=== PATIENT | female | born 1955 | race Caucasian/White ===

== ENCOUNTER → 2016-11-12 | Outpatient (CLI) | payer OTHER ==
[2016-11-12 14:13] LABS: BASO % 0.2 % (0.0-1.0); EOS # 0.1 K/mm3 (0.0-0.50); EOS % 0.8 % (0.0-3.0); LYMPH # 1.2 K/mm3 (1.5-4.5); LYMPH % 8.2 % (24.0-44.0); MEAN CORPUSCULAR HEMOGLOBIN 29.1 pg (27.0-33.0); MEAN CORPUSCULAR HGB CONC 32.5 g/dl (32.0-36.5); MEAN CORPUSCULAR VOLUME 89.7 fl (80.0-96.0); MONO # 0.5 K/mm3 (0.0-0.8); MONO % 3.5 % (0.0-5.0); NEUTROPHILS # 12.3 K/mm3 (1.8-7.7); NEUTROPHILS % 86.7 % (36.0-66.0); RED CELL DISTRIBUTION WIDTH 12.2 % (11.5-14.5); WHITE BLOOD COUNT 14.2 K/mm3 (4.0-10.0)
[2016-11-12 15:03] LABS: ALBUMIN 3.1 GM/DL (3.2-5.2); ALBUMIN/GLOBULIN RATIO 0.65 (1.00-1.93); ALKALINE PHOSPHATASE 102 U/L (45-117); ALT/SGPT 14 U/L (12-78); ANION GAP 8 MEQ/L (8-16); AST/SGOT 7 U/L (15-37); BILIRUBIN,TOTAL 0.3 MG/DL (0.2-1.0); BLOOD UREA NITROGEN 10 MG/DL (7-18); CARBON DIOXIDE LEVEL 30 MEQ/L (21-32); CHLORIDE LEVEL 101 MEQ/L (98-107); CHOLESTEROL LEVEL 205 MG/DL (<200); CREATININE FOR GFR 0.87 MG/DL (0.55-1.02); GLOMERULAR FILTRATION RATE > 60.0 (>51); GLUCOSE, FASTING 93 MG/DL (70-105); POTASSIUM SERUM 4.4 MEQ/L (3.5-5.1); SODIUM LEVEL 139 MEQ/L (136-145); TOTAL PROTEIN 7.9 GM/DL (6.4-8.2); TRIGLYCERIDES LEVEL 160 MG/DL (<150)
== END ==
LOC: M LAB 13:18
PROVIDERS: ATTEND Dermatology
DX: Z79.899 Other long term (current) drug therapy (principal)

== ENCOUNTER → 2017-10-01 | Outpatient (CLI) | payer OTHER ==
[2017-10-01 11:20] LABS: BASO % 0.4 % (0.0-1.0); EOS # 0.2 10^3/uL (0.0-0.50); EOS % 2.3 % (0.0-3.0); HEMATOCRIT 37.1 % (36.0-47.0); IMMATURE GRANULOCYTE % 0.2 % (0-3.0); LYMPH # 1.6 10^3/uL (1.5-4.5); LYMPH % 19.4 % (24.0-44.0); MEAN CORPUSCULAR HEMOGLOBIN 29.6 pg (27.0-33.0); MEAN CORPUSCULAR HGB CONC 32.3 g/dl (32.0-36.5); MEAN CORPUSCULAR VOLUME 91.4 fl (80.0-96.0); MONO # 0.5 10^3/uL (0.0-0.8); MONO % 5.7 % (0.0-5.0); NEUTROPHILS # 6.1 10^3/uL (1.8-7.7); PLATELET COUNT, AUTOMATED 287 10^3/uL (150-450); RED BLOOD COUNT 4.06 10^6/uL (4.00-5.40); RED CELL DISTRIBUTION WIDTH 13.5 % (11.5-14.5); WHITE BLOOD COUNT 8.4 10^3/uL (4.0-10.0)
[2017-10-01 11:59] LABS: ALBUMIN 3.6 GM/DL (3.2-5.2); ALBUMIN/GLOBULIN RATIO 0.97 (1.00-1.93); ALKALINE PHOSPHATASE 81 U/L (45-117); ALT/SGPT 20 U/L (12-78); ANION GAP 5 MEQ/L (8-16); AST/SGOT 19 U/L (7-37); BILIRUBIN,TOTAL 0.4 MG/DL (0.2-1.0); BLOOD UREA NITROGEN 23 MG/DL (7-18); CALCIUM LEVEL 9.3 MG/DL (8.8-10.2); CARBON DIOXIDE LEVEL 30 MEQ/L (21-32); CHLORIDE LEVEL 105 MEQ/L (98-107); CREATININE FOR GFR 0.93 MG/DL (0.55-1.30); GLOMERULAR FILTRATION RATE > 60.0 (>45); GLUCOSE, FASTING 84 MG/DL (70-100); POTASSIUM SERUM 4.4 MEQ/L (3.5-5.1); SODIUM LEVEL 140 MEQ/L (136-145); TOTAL PROTEIN 7.3 GM/DL (6.4-8.2)
== END ==
LOC: M LAB 10:50
DX: Z79.899 Other long term (current) drug therapy (principal); C44.319 Basal cell carcinoma of skin of other parts of face
CPT/HCPCS: 80053

== ENCOUNTER → 2018-11-23 | Outpatient (CLI) | payer OTHER ==
[2018-11-23 13:20] LABS: BASO % 0.3 % (0.0-1.0); EOS # 0.2 10^3/uL (0.0-0.50); EOS % 1.3 % (0.0-3.0); HEMATOCRIT 28.8 % (36.0-47.0); HEMOGLOBIN 8.3 g/dl (12.0-15.5); LYMPH # 1.6 10^3/uL (1.5-4.5); LYMPH % 13.7 % (24.0-44.0); MEAN CORPUSCULAR HEMOGLOBIN 21.9 pg (27.0-33.0); MEAN CORPUSCULAR HGB CONC 28.8 g/dl (32.0-36.5); MONO # 0.7 10^3/uL (0.0-0.8); MONO % 5.5 % (0.0-5.0); NEUTROPHILS # 9.4 10^3/uL (1.8-7.7); NEUTROPHILS % 78.8 % (36.0-66.0); PLATELET COUNT, AUTOMATED 745 10^3/uL (150-450); RED BLOOD COUNT 3.79 10^6/uL (4.00-5.40); WHITE BLOOD COUNT 11.9 10^3/uL (4.0-10.0)
[2018-11-23 13:43] LABS: ALBUMIN 3.1 GM/DL (3.2-5.2); ALT/SGPT 11 U/L (12-78); BILIRUBIN,TOTAL 0.2 MG/DL (0.2-1.0); BLOOD UREA NITROGEN 16 MG/DL (7-18); CALCIUM LEVEL 10.2 MG/DL (8.8-10.2); CARBON DIOXIDE LEVEL 29 MEQ/L (21-32); CHLORIDE LEVEL 101 MEQ/L (98-107); CREATININE FOR GFR 0.69 MG/DL (0.55-1.30); GLOMERULAR FILTRATION RATE > 60.0 (>45); GLUCOSE, FASTING 87 MG/DL (70-100); POTASSIUM SERUM 4.2 MEQ/L (3.5-5.1); SODIUM LEVEL 138 MEQ/L (136-145); TOTAL PROTEIN 7.6 GM/DL (6.4-8.2)
== END ==
LOC: M LAB 12:29
PROVIDERS: ATTEND Dermatology
DX: Z79.899 Other long term (current) drug therapy (principal)

== ENCOUNTER 2019-03-24 19:14 | Inpatient (IN) | payer OTHER ==
[~2019-03-24] VITALS: Ht 165.1 cm; Wt 39.1 kg
[2019-03-24] MEDS ORDERED: ERYT1OIN26 TOP (19:30)
[2019-03-24] MEDS ORDERED: ACET-683 PO (19:30)
[2019-03-24] MEDS ORDERED: CENT1TAB PO (19:30)
[2019-03-24] MEDS ORDERED: [UNRECOGNIZED DRUG - CODE] PO (19:30)
[2019-03-24] MEDS ORDERED: GENT1OI TOP (19:30)
[2019-03-24] MEDS ORDERED: MUPI2OI (19:30)
[2019-03-24] MEDS ORDERED: DOCU-129 PO (19:33)
[2019-03-24] MEDS ORDERED: CBD OIL PO (19:33)
[2019-03-24] MEDS ORDERED: FLORCAP6 PO (19:33)
[2019-03-24] MEDS ORDERED: MELA3TAB49 PO (19:33)
[2019-03-24] MEDS ORDERED: MELA1LIQ2 PO (19:33)
[2019-03-24] MEDS ORDERED: NS 500 ML IV ONE (19:45)
[2019-03-24 20:17] LABS: BASO % 0.2 % (0.0-1.0); HEMATOCRIT 27.3 % (36.0-47.0); HEMOGLOBIN 8.1 g/dl (12.0-15.5); LYMPH # 1.3 10^3/uL (1.5-5.0); LYMPH % 5.7 % (24.0-44.0); MEAN CORPUSCULAR HGB CONC 29.7 g/dl (32.0-36.5); MEAN CORPUSCULAR VOLUME 74.2 fl (80.0-96.0); MONO # 1.1 10^3/uL (0.0-0.8); MONO % 4.9 % (0.0-5.0); NEUTROPHILS # 19.4 10^3/uL (1.5-8.5); NEUTROPHILS % 88.7 % (36.0-66.0); PLATELET COUNT, AUTOMATED 776 10^3/uL (150-450); RED BLOOD COUNT 3.68 10^6/uL (4.00-5.40); WHITE BLOOD COUNT 21.9 10^3/uL (4.0-10.0)
[2019-03-24 20:57] LABS: ALBUMIN 2.2 GM/DL (3.2-5.2); ALT/SGPT 9 U/L (12-78); BILIRUBIN,DIRECT < 0.1 MG/DL (0.0-0.2); BILIRUBIN,TOTAL 0.2 MG/DL (0.2-1.0); BLOOD UREA NITROGEN 17 MG/DL (7-18); CALCIUM LEVEL 9.7 MG/DL (8.8-10.2); CARBON DIOXIDE LEVEL 30 MEQ/L (21-32); CHLORIDE LEVEL 96 MEQ/L (98-107); CREATININE FOR GFR 0.53 MG/DL (0.55-1.30); GLOMERULAR FILTRATION RATE > 60.0 (>45); GLUCOSE, FASTING 104 MG/DL (70-100); SODIUM LEVEL 135 MEQ/L (136-145); TOTAL PROTEIN 6.5 GM/DL (6.4-8.2)
[2019-03-24] MEDS ORDERED: RAMELTEON 8 MG TAB (ROZEREM) PO SCH (21:00)
[2019-03-24] MEDS: GENTAMICIN SULFATE 0.1% OINT 15 GM TOP SCH (21:00)
[2019-03-24 22:19] LABS: FERRITIN 25 NG/ML (8-252); IRON (FE) 11 UG/DL (50-170); PERCENT SATURATION 5.6 % (13.2-45.0); TOTAL IRON BINDING CAPACITY 197 UG/DL (250-450)
[2019-03-24] MEDS ORDERED: ENSULIQ8 PO (22:19)
--- NOTE | 2019-03-24 22:39 | REPVR ---
PROCEDURE INFORMATION: Exam: XR Chest, 2 Views Exam date and time: 03/24/2019 10:04 PM Clinical history: 64 years old, female; Condition or disease; Other: Leukocytosis TECHNIQUE: Imaging protocol: XR of the chest Views: 2 views. COMPARISON: No relevant prior studies available. FINDINGS: Lungs: Lungs are hyperinflated but otherwise clear. Pleural space: Unremarkable. No pleural effusion. No pneumothorax. Heart/Mediastinum: Unremarkable. No cardiomegaly. Bones/joints: Unremarkable. IMPRESSION: 1. Hyperinflated lungs. 2. No acute disease. Electronically signed by: Wm Washington On 03/24/2019 22:39:20 PM
[2019-03-24] MEDS ORDERED: MAALOX 30 ML SUSP *UDC PO PRN (22:45)
[2019-03-24] MEDS ORDERED: ACETAMINOPHEN TAB 650MG DOSE (2X325MG) PO PRN (22:45)
[2019-03-24] MEDS ORDERED: ERYTHROMYCIN OPHTH OINT TOP PRN (22:45)
[2019-03-24 22:47] VITALS: BP 116/63
[2019-03-24] MEDS: DOCUSATE SODIUM 100 MG CAP PO SCH (22:53)
[2019-03-24 23:02] VITALS: BP 112/67
[2019-03-24 23:08] LABS: INFLUENZA A AMPLIFICATION NEGATIVE (NEGATIVE); INFLUENZA B AMPLIFICATION NEGATIVE (NEGATIVE)
[2019-03-24] MEDS: MORPHINE 2 MG/ML 1ML VIAL (J2270) IV PRN (23:32)
[2019-03-24] MEDS ORDERED: CLINDAMYCIN 600 MG in IV 1 EA IV ONE (23:45)
[2019-03-24] MEDS ORDERED: NS 1,000 ML IV SCH (23:45)
[2019-03-24 23:57] VITALS: BP 105/55
--- NOTE | 2019-03-24 23:57 | HPEPDOC ---
[facility] Medical History & Physical Date of Admission Mar 24, 2019 Date of Service: Mar 24, 2019 Attending Physician: INESSA LAWTON MD History and Physical CHIEF COMPLAINT: Decreased appetite, deconditioning HISTORY OF PRESENT ILLNESS: Lissy Britt is a 64-year-old female with history of basal cell carcinoma intracranial mass on right side of head with bony involvement and metastatic to the brain presents with several weeks deconditioning, decreased energy, decreased appetite. Per her daughter, juan gomez gets all of her cancer treatment at [facility] in [place] and with oncologist in [place]. The family was recently in [place] in early February 2019 for follow-up scans and was told that the intracranial mass has metastasized to her brain and the patient was given a terminal diagnosis. Ever since she has been home she has been unable to get out of bed due to lack of energy, has had lack of appetite, and has complained of pain in her neck and at the site of her cancer. She has only taken Tylenol for her pain, which she reports relieves her pain. She denies any recent fevers, but she does endorse chills. She denies nausea, vomiting or diarrhea. The patient does not report any pain at this current time. The family has been working on home hospice consult, but is unable to do so as the patient has not established with a PCP in [place]. PAST MEDICAL HISTORY: 1. Basal Cell Carcinoma of the face metastatic to the brain s/p oral chemotherapy with Erivedge (managed at [facility]) PAST SURGICAL HISTORY: None SOCIAL HISTORY: Nonsmoker, no alcohol FAMILY HISTORY: noncontributory ALLERGIES: Please see below. REVIEW OF SYSTEMS: CONSTITUTIONAL: Lack of energy, chills, lack of appetite HEENT: denies vision changes, no sinus problems, denies any trouble swallowing CARDIOVASCULAR: no palpitations RESPIRATORY: Denies any shortness of breath GENITOURINARY: No dysuria MUSCULOSKELETAL: Denies any joint/muscle pain GASTROINTESTINAL: Denies abdominal pain, no nausea/vomiting/diarrhea, reports intermittent constipation SKIN: No new rashes or lesions NEUROLOGICAL: No loss of sensation PSYCHIATRIC: Reports normal mood, no delusions or hallucinations ENDOCRINE: No hot/cold intolerance HEMATOLOGIC/LYMPHATIC: No easy bruising, no lumps/bumps ALLERGIC/IMMUNOLOGIC: No sinus symptoms HOME MEDICATIONS: Please see below. PHYSICAL EXAMINATION: VITAL SIGNS: Please see below. GENERAL APPEARANCE: Laying in bed, appears stated age, no acute distress, calm, cooperative, very cachectic HEENT: There is a large mass involving the right two thirds of her face extending from her scalp into her neck that is oozing, malodorous, and has evidence of infected tissue RESPIRATORY: Lungs are clear to auscultation bilaterally with no adventitious breath sounds appreciated CARDIOVASCULAR: no JVD, RRR,no murmurs/rubs/gallops ABDOMEN: Soft, nontender to palpation in all four quadrants, no luis s/organomegaly EXTREMITIES: no clubbing, cyanosis or edema noted NEUROLOGICAL: No obvious focal deficits PSYCHIATRIC: normal mood/affect Skin: No rashes or ulcers. LN: No significant cervical or inguinal lymphadenopathy LABORATORY DATA: See below. IMAGING: CT Maxillofacial (02/17/2019): Impression: Heterogeneously enhancing large superficial mass that extends intracranially is noted in the right side of the head and neck with significant bony destruction of the right frontal bone, parietal bone. Temporal bone and sphenoid bone. There is direct intracranial extension into the right middle cranial fossa and right anterior cranial fossa. Right to left midline shift is noted. There is direct extension into the right jugular foramen and right sigmoid sinus. Inferior extension is noted to involve the skin and subcutis tissues of the right side of the face and neck. Direct intraorbital extension on the right side is noted as well as extension to the right maxillary sinus. MRI brain (02/13/2019): Impression: Interval increase in size of a large heterogeneously enhancing aggressive right facial mass with bony destruction of the right frontal bone and right temporal bone. Direct intracranial extension is noted into the right frontal lobe and right temporal lobe. There is significant vasogenic edema in the right frontal lobe and 9 mm of right to left midline shift. The mass is extending into the right middle cranial fossa and jugular foramen with tumor thrombus noted within the right sigmoid sinus and right internal jugular vein. There is direct intraorbital extension to the right orbit with subsequent deformity of the right eye globe and mass effect exerted upon the right optic nerve. MICROBIOLOGY: Please see below. ASSESSMENT: This is 64-year-old female with terminal basal cell carcinoma involving most of her scalp, neck, and metastatic to her brain, who presents with deconditioning, lack of appetite, lack of energy found to have leukocytosis from unknown infection, thrombocytosis and anemia. PLAN: 1. Basal cell carcinoma, metastatic to the brain: Patient currently taking Erivedge prescribed by her oncologist at [facility]. -Latest imaging from [facility] above, demonstrates metastasis to brain. Patient reports she was referred to Dr. Bishop for radiation, but due to the late-stage of her cancer she is unable to do so. -Family wishes to pursue home hospice, referral placed -Pain management with IV morphine 2mg Q4H + bowel regimen ordered, Tylenol as needed 2. Leukocytosis: Source of infection likely secondary to soft tissue infection of the face. -Empiric antibiotic coverage with IV Clindamycin -Influenza, RSV negative -CXR negative for infection -Metronidazole cream to facial wound TID 3. Microcytic anemia likely 2/2 iron deficiency -Hgb found to be 8.1 on admission with most recent labs from [facility] Hgb 7.3. Patient reports she usually feels more energy with blood transfusion. -1U pRBCs ordered in ED, will recheck H/H in AM 4. Thrombocytosis: -Platelet count 776. This has been chronic for the patient, as last known plt count 869. -Likely 2/2 iron deficiency 5. Deconditioning: -Regular diet supplemented with Ensure TID -IVF NS 1 L bolus DISPO: Pending arrangement for home hospice Vital Signs Vital Signs Date Time Temp Pulse Resp B/P (MAP) Pulse Ox O2 Delivery O2 Flow Rate FiO2 03/24/19 22:34 79 16 116/63 (80) 98 Room Air 03/24/19 20:13 98.1 03/24/19 19:35 94 Laboratory Data Labs 24H Laboratory Tests 2 03/24/19 20:07: Immature Granulocyte % (Auto) 0.5, Neutrophils (%) (Auto) 88.7H, Lymphocytes (%) (Auto) 5.7L, Monocytes (%) (Auto) 4.9, Eosinophils (%) (Auto) 0.0, Basophils (%) (Auto) 0.2, Neutrophils # (Auto) 19.4H, Lymphocytes # (Auto) 1.3L, Monocytes # (Auto) 1.1H, Eosinophils # (Auto) 0.0, Basophils # (Auto) 0.0, Reticulocyte # (auto) 39.7, Nucleated Red Blood Cells % (auto) 0.0, Percent Reticulocyte Count 1.1, Reticulocyte Hemoglobin Equivalent 22.0L, Anion Gap 9, Glomerular Fi ltration Rate > 60.0, Calcium Level 9.7, Iron Level 11L, Total Iron Binding Capacity 197L, Transferrin % Saturation 5.6L, Ferritin 25, Total Bilirubin 0.2, Direct Bilirubin < 0.1, Aspartate Amino Transf (AST/SGOT) 11, Alanine Aminotransferase (ALT/SGPT) 9L, Alkaline Phosphatase 90, Total Protein 6.5, Albumin 2.2L, Albumin/Globulin Ratio 0.51L 03/24/19 22:23: 03/24/19 22:24: CBC/BMP Laboratory Tests 03/24/19 20:07 Microbiology Microbiology 03/24/19 Respiratory Virus Panel (PCR) (FABIAN), Received Pending 03/24/19 Blood Culture, Received Pending Home Medications Scheduled Cannabidiol (Cbd Oil) Btl, 25 MG PO DAILY Gentamicin Sulfate (Gentamicin Sulfate) 15 Gm Oint...g., 1 APPLIC TOP BID APPLIED TO WOUNDS ON SKIN Lactobacillus Acidophilus (Florajen) 460 Mg Capsule, 1 CAP PO DAILY Lactose-Reduced Food (Ensure Liquid) 237 Ml Liquid, 237 ML PO DAILY Multivit-Min/FA/Lycopen/Lutein (Centrum Silver Tablet) 1 Each Tablet, 1 TAB PO DAILY Vismodegib (Erivedge) 150 Mg Capsule, 1 CAP PO DAILY Scheduled PRN Acetaminophen (Acetaminophen) 500 Mg Tablet, 1,000 MG PO Q8H PRN for PAIN Docusate Sodium (Stool Softener) 100 Mg Capsule, 100 MG PO BID PRN for BOWEL CARE Erythromycin Base (Erythromycin) 1 Gm Oint...g., 1 APPLIC TOP DAILY PRN for RASH APPLIED ON NON-STICK PAD AND THEN PUT ON RIGHT EYE Hyoscyamine Sulfate (Hyoscyamine Sulfate) 0.125 Mg Tab.subl, 0.125 MG PO Q4HP PRN for TERMINAL SECRETIONS Lorazepam (Ativan) 1 Mg Tablet, 1 MG PO Q2HP PRN for ANXIETY Melatonin (Melatonin) 3 Mg Tab.rapdis, 6 MG PO QHS PRN for SLEEP Allergies Coded Allergies: No Known Allergies (Unverified , 03/24/19) GME ATTESTATION GME ATTESTATION My faculty preceptor for this patient encounter was physically present during the encounter and was fully available. All aspects of the patient interview, examination, medical decision making process, and medical care plan development were reviewed and approved by the faculty preceptor. The faculty preceptor is aware and concurs with the plan as stated in the body of this note and will attest to such by his/her cosignature. ATTENDING NOTE I examined Ms. Britt at 10:45 PM, discussed the case with , and agree with the findings as documented with addition of: Ms. Britt is a 64-year-old female with past medical history advanced/metastatic basal cell carcinoma will be admitted for management of weakness/failure to thrive. According to her family member she is not eaten solid foods for the last few weeks, and when she attempted to get up, fell down; the patient admits to feeling depressed. On physical exam she has a large necrotic malignant wound affecting the left side of the face. 1. Necrotic Malignant Wound 2/2 advanced/metastatic basal cell carcinoma -the patient has seen various specialists and has been told that there is not much that can be done to treat her cancer -the leucocytosis is likely reactive -she has elected for home hospice but remains full code Plan: metronidazole gel to help decrease wound odor / IV abx / f/u CBC / case management & pallative care consult to follow upon code status 2. Failure to Thrive / Protein Calorie Malnutrition -she has lost a lot of weight -she has difficulties walking -her BMI is 14.3kg/m2 Plan: f/u prealbumin KJ MELCHOR MD Mar 24, 2019 23:55 INESSA LAWTON MD Mar 25, 2019 00:04
[2019-03-25 01:00] VITALS: BP 108/58
[2019-03-25 04:00] VITALS: BP 121/58
[2019-03-25] MEDS: MORPHINE 2 MG/ML 1ML VIAL (J2270) IV PRN ×2 (04:41→09:35)
[2019-03-25 06:22] LABS: HEMATOCRIT 32.6 % (36.0-47.0); HEMOGLOBIN 9.6 g/dl (12.0-15.5); MEAN CORPUSCULAR HEMOGLOBIN 23.3 pg (27.0-33.0); MEAN CORPUSCULAR HGB CONC 29.4 g/dl (32.0-36.5); MEAN CORPUSCULAR VOLUME 79.1 fl (80.0-96.0); RED BLOOD COUNT 4.12 10^6/uL (4.00-5.40); WHITE BLOOD COUNT 17.1 10^3/uL (4.0-10.0)
[2019-03-25 06:28] LABS: PLATELET COUNT, AUTOMATED 620 10^3/uL (150-450)
[2019-03-25 08:00] VITALS: BP 119/67
[2019-03-25 08:20] LABS: PREALBUMIN 12.3 MG/DL (20.0-40.0)
[2019-03-25] MEDS: DOCUSATE SODIUM 100 MG CAP PO SCH (09:00)
[2019-03-25] MEDS: GENTAMICIN SULFATE 0.1% OINT 15 GM TOP SCH (09:00)
[2019-03-25 09:49] LABS: FOLATE 21.6 NG/ML (>5.4); VITAMIN B12 LEVEL 1867 PG/ML (247-911)
[2019-03-25] MEDS ORDERED: HYOSCYAMINE SULFATE 0.125 MG SUBL TABLET PO PRN (12:00)
[2019-03-25] MEDS ORDERED: LORazepam 1 MG TAB PO PRN (12:00)
[2019-03-25] MEDS ORDERED: MORPHINE 10MG/0.5ML ORAL CONCENTRATE SOLUTION U/D SL PRN (12:00)
[2019-03-25] MEDS ORDERED: HYOS125TA PO (12:10)
[2019-03-25] MEDS ORDERED: ATIV1TAB7 PO (12:10)
--- NOTE | 2019-03-25 14:49 | DS.PDOC ---
Discharge Summary General Date of Admission Mar 24, 2019 at 21:41 Date of Discharge 03/25/19 Discharge Summary PROCEDURES PERFORMED DURING STAY: None ADMITTING DIAGNOSES: Basal cell carcinoma, metastatic to the brain Leukocytosis Thrombocytosis Microcytic anemia likely 2/2 iron deficiency Deconditioning DISCHARGE DIAGNOSES: Basal cell carcinoma, metastatic to the brain Leukocytosis Thrombocytosis Microcytic anemia likely 2/2 iron deficiency Deconditioning COMPLICATIONS/CHIEF COMPLAINT: Weakness. HISTORY OF PRESENT ILLNESS:HISTORY OF PRESENT ILLNESS: Lissy Britt is a 64-year-old female with history of basal cell carcinoma intracranial mass on right side of head with bony involvement and metastatic to the brain presents with several weeks deconditioning, decreased energy, decreased appetite. Per her daughter, the patient gets all of her cancer treatment at [facility] in [place] and with oncologist in [place]. The family was recently in [place] in early February 2019 for follow-up scans and was told that the intracranial mass has metastasized to her brain and the patient was given a terminal diagnosis. Ever since she has been home she has been unable to get out of bed due to lack of energy, has had lack of appetite, and has complained of pain in her neck and at the site of her cancer. She has only taken Tylenol for her pain, which she reports relieves her pain. She denies any recent fevers, but she does endorse chills. She denies nausea, vomiting or diarrhea. The patient does not report any pain at this current time. The family has been working on home hospice consult, but is unable to do so as the patient has not established with a PCP in [place]. HOSPITAL COURSE: After discussion with family patient has been transferred to ENGINEER status DISCHARGE MEDICATIONS: Please see below. ALLERGIES: Please see below. PHYSICAL EXAMINATION ON DISCHARGE: VITAL SIGNS: Please see below. GENERAL APPEARANCE: Laying in bed, appears stated age, no acute distress, calm, cooperative, very cachectic HEENT: There is a large mass involving the right two thirds of her face extending from her scalp into her neck that is oozing, malodorous, and has evidence of infected tissue RESPIRATORY: Lungs are clear to auscultation bilaterally with no adventitious breath sounds appreciated CARDIOVASCULAR: no JVD, RRR,no murmurs/rubs/gallops ABDOMEN: Soft, nontender to palpation in all four quadrants, no masses/organomegaly EXTREMITIES: no clubbing, cyanosis or edema noted NEUROLOGICAL: No obvious focal deficits PSYCHIATRIC: normal mood/affect Skin: No rashes or ulcers. LN: No significant cervical or inguinal lymphadenopathy LABORATORY DATA: Please see below. PROGNOSIS: Guarded ACTIVITY: Hospice care DIET: Regular DISPOSITION: 50 Hospice Home. DISCHARGE INSTRUCTIONS: Given according to hospice care ITEMS TO FOLLOWUP ON ON OUTPATIENT: Follow-up with PCP in hospice care DISCHARGE CONDITION:Stable TIME SPENT ON DISCHARGE: Greater than 20 minutes. Vital Signs/I&Os Vital Signs Date Time Temp Pulse Resp B/P (MAP) Pulse Ox O2 Delivery O2 Flow Rate FiO2 03/25/19 09:35 20 03/25/19 08:00 97.1 80 119/67 (84) 100 03/25/19 04:00 Room Air 03/24/19 19:35 94 I&O- Last 24 Hours up to 6 AM 03/25/19 06:00 Intake Total 1420 ml Output Total 0 ml Balance 1420 ml Laboratory Data Labs 24H Laboratory Tests 2 03/24/19 20:07: Immature Granulocyte % (Auto) 0.5, Neutrophils (%) (Auto) 88.7H, Lymphocytes (%) (Auto) 5.7L, Monocytes (%) (Auto) 4.9, Eosinophils (%) (Auto) 0.0, Basophils (%) (Auto) 0.2, Neutrophils # (Auto) 19.4H, Lymphocytes # (Auto) 1.3L, Monocytes # (Auto) 1.1H, Eosinophils # (Auto) 0.0, Basophils # (Auto) 0.0, Reticulocyte # (auto) 39.7, Nucleated Red Blood Cells % (auto) 0.0, Percent Reticulocyte Count 1.1, Reticulocyte Hemoglobin Equivalent 22.0L, Anion Gap 9, Glomerular Filtration Rate > 60.0, Calcium Level 9.7, Iron Level 11L, Total Iron Binding Capacity 197L, Transferrin % Saturation 5.6L, Ferritin 25, Total Bilirubin 0.2, Direct Bilirubin < 0.1, Aspartate Amino Transf (AST/SGOT) 11, Alanine Aminotransferase (ALT/SGPT) 9L, Alkaline Phosphatase 90, Total Protein 6.5, Albumin 2.2L, Albumin/Globulin Ratio 0.51L, Prealbumin 12.3L, Vitamin B12 Level 1867H, Folate 21.6 03/24/19 22:23: Lactic Acid Level 1.6 03/24/19 22:24: Influenza Type A (RT-PCR) NEGATIVE, Influenza Type B (RT-PCR) NEGATIVE, Respiratory Syncytial Virus (RT-PCR NEGATIVE 03/25/19 06:08: Nucleated Red Blood Cells % (auto) 0.0 CBC/BMP Laboratory Tests 03/24/19 20:07 03/25/19 06:08 Microbiology Microbiology 03/24/19 Respiratory Virus Panel (PCR) (FABIAN) - Final, Complete 03/24/19 Blood Culture, Received Pending Discharge Medications Scheduled Cannabidiol (Cbd Oil) Btl, 25 MG PO DAILY, (Reported) Gentamicin Sulfate (Gentamicin Sulfate) 15 Gm Oint...g., 1 APPLIC TOP BID, (Reported) APPLIED TO WOUNDS ON SKIN Lactobacillus Acidophilus (Florajen) 460 Mg Capsule, 1 CAP PO DAILY, (Reported) Lactose-Reduced Food (Ensure Liquid) 237 Ml Liquid, 237 ML PO DAILY, (Reported) Multivit-Min/FA/Lycopen/Lutein (Centrum Silver Tablet) 1 Each Tablet, 1 TAB PO DAILY, (Reported) Vismodegib (Erivedge) 150 Mg Capsule, 1 CAP PO DAILY, (Reported) Scheduled PRN Acetaminophen (Acetaminophen) 500 Mg Tablet, 1,000 MG PO Q8H PRN for PAIN, (Reported) Docusate Sodium (Stool Softener) 100 Mg Capsule, 100 MG PO BID PRN for BOWEL CARE, (Reported) Erythromycin Base (Erythromycin) 1 Gm Oint...g., 1 APPLIC TOP DAILY PRN for RASH, (Reported) APPLIED ON NON-STICK PAD AND THEN PUT ON RIGHT EYE Hyoscyamine Sulfate (Hyoscyamine Sulfate) 0.125 Mg Tab.subl, 0.125 MG PO Q4HP PRN for TERMINAL SECRETIONS Lorazepam (Ativan) 1 Mg Tablet, 1 MG PO Q2HP PRN for ANXIETY Melatonin (Melatonin) 3 Mg Tab.rapdis, 6 MG PO QHS PRN for SLEEP, (Reported) Allergies Coded Allergies: No Known Allergies (Unverified , 03/24/19) OCTAVIA MCDOWELL DO Mar 25, 2019 14:49
== END 2019-03-25 12:55 | disposition hospice, home (50) | DRG 385 ==
LOC: M ED 19:14 → M ED INP 21:41 → M PCU 03-25 00:03
PROVIDERS: ADMIT Internal Medicine; ATTEND Internal Medicine
DX: C44.41 Basal cell carcinoma of skin of scalp and neck (principal); C79.51 Secondary malignant neoplasm of bone; C79.31 Secondary malignant neoplasm of brain; E46 Unspecified protein-calorie malnutrition; D47.3 Essential (hemorrhagic) thrombocythemia; Z68.1 Body mass index [BMI] 19.9 or less, adult; D72.829 Elevated white blood cell count, unspecified; D50.9 Iron deficiency anemia, unspecified; Z79.899 Other long term (current) drug therapy; Z85.828 Personal history of other malignant neoplasm of skin